=== PATIENT | female | born 1950 ===

== ENCOUNTER 2020-12-10 15:02 | Outpatient (REF) | payer MEDICARE, SELFPAY | END 2020-12-10 15:03 | disposition home or self-care (01) | LOC: HO.LAB 15:02 | PROVIDERS: Visit Provider Nurse Practitioner Family | DX: J02.9 Acute pharyngitis, unspecified (principal); Z20.822 Contact with and (suspected) exposure to COVID-19 | CPT/HCPCS: U0003; U0005 ==